=== PATIENT | male | born 1960 | race Hispanic/Latino ===

== ENCOUNTER 2017-01-28 09:11 | Outpatient (CLI) | payer BC ==
[2017-01-28 11:20] LABS: #Basophils 0.1 thou/uL (0.0-0.2); #Eosinphils 0.2 thou/uL (0.0-0.7); #Lymphocytes 2.8 thou/uL (1.20-3.40); #Monocytes 0.9 thou/uL (0.11-0.59); #Neutrophils 7.4 thou/uL (1.40-6.50); %Basophils 0.7 % (0.0-1.0); %Eosinophils 2.2 % (0.0-10.0); %Lymphocytes 24.7 % (21.0-51.0); %Monocytes 8.1 % (0.0-10.0); %Neutrophils 64.4 % (42.0-75.0); Hemoglobin 14.7 g/dL (14.0-18.0); Mean Corpuscular HGB CONC 34.6 g/dL (32.0-36.0); Mean Corpuscular Hemoglobin 32.1 pg (27.0-31.0); Mean Platelet Volume 5.9 fL (7.4-10.4); Platelet Count 429 thou/uL (130-400); Red Blood Cell (RBC) Count 4.57 mill/uL (4.70-6.10); White Blood Cell (WBC) Count 11.4 thou/uL (4.8-10.8)
[2017-01-28 11:28] LABS: ALT (SGPT) 15 U/L (8-55); AST (SGOT) 12 U/L (5-34); Albumin 4.3 g/dL (3.5-5.0); Alkaline Phosphatase 88 U/L (40-150); Anion Gap 14 mmol/L (10-20); BUN (Urea Nitrogen) 18 mg/dL (8.4-25.7); Bilirubin, Total 0.2 mg/dL (0.2-1.2); Calc. Creatinine Clearance 0 mL/min (70-130); Calcium 9.3 mg/dL (7.8-10.44); Carbon Dioxide 25 mmol/L (22-29); Cardiac Risk 6.1 (Less than 4.5); Chloride 108 mmol/L (98-107); Cholesterol 232 mg/dl (< 200 Desired); Estimated GFR-MDRD Greater than 90; Glucose 88 mg/dL (70-105); HDL Cholesterol 38 mg/dL (>60 Neg Risk); LDL Cholesterol, Calculated 159 mg/dL; Potassium 4.8 mmol/L (3.5-5.1); Protein, Total 7.3 g/dL (6.0-8.3); Sodium 142 mmol/L (136-145); Triglycerides 177 mg/dL (Less than 150)
[2017-01-28 11:47] LABS: Thyroid Stimulating Hormone 0.7847 uIU/mL (0.35-4.94)
== END 2017-01-28 09:12 | disposition home or self-care (01) ==
LOC: HPCALD 09:11
PROVIDERS: ATTEND Family Medicine
DX: Z12.5 Encounter for screening for malignant neoplasm of prostate (principal); Z13.6 Encounter for screening for cardiovascular disorders; I10 Essential (primary) hypertension
CPT/HCPCS: 36415; 80053; 80061; 84443; 85025; G0103

== ENCOUNTER 2017-01-29 10:34 | Outpatient (CLI) | payer BC ==
--- NOTE | 2017-01-29 21:22 | RAD ---
CHEST TWO VIEWS: 01/29/17 Comparison is made with the 09/11/10 study. The heart is normal in size and the lungs are clear. No i nfiltrate or effusion was seen. The right hilum is a little more prominent than the left but this is probably due to positioning of the patient. There is nothing on the left side that would explain sw elling. IMPRESSION: No acute thoracic finding. POS: HOME
== END 2017-01-29 10:35 | disposition home or self-care (01) ==
LOC: BURRAD 10:34
PROVIDERS: ATTEND Family Medicine
DX: M79.89 Other specified soft tissue disorders (principal)
CPT/HCPCS: 71020

== ENCOUNTER 2017-05-14 09:26 | Outpatient (CLI) | payer BC ==
--- NOTE | 2017-05-14 15:29 | ULT ---
LEFT AXILLA NONVASCULAR ULTRASOUND: 05/14/2017 HISTORY: Ultrasonography of the left axilla was performed for evaluation of a palpable mass. FINDINGS: There is a fairly well encapsulated, solid mass present that measures about 6.9 x 3.8 cm. It only h as a trace of blood flow within it. It is slightly hypoechoic. This could easily be a large lipoma ; however, I would need a CT to see the density numbers to be absolutely sure. There is no evidence of abscess, vascular anomaly, or other axillary findings of concern. IMPRESSION: Fairly well encapsulated solid mass with slight amounts of blood flow, more likely a lipoma than not ; however, this scan could not prove that. I feel a CT would be needed to be definitive. POS: [facility]
== END 2017-05-14 09:27 | disposition home or self-care (01) ==
LOC: BURULT 09:26
PROVIDERS: ATTEND Family Medicine
DX: M79.89 Other specified soft tissue disorders (principal)
CPT/HCPCS: 76882

== ENCOUNTER 2021-03-31 20:13 | Emergency (ER) | payer OTHER, BC ==
[2021-03-31] MEDS ORDERED: Bacitracin 1 PK ONE (20:36)
== END 2021-03-31 20:43 | disposition home or self-care (01) ==
LOC: BURERS 20:13
DX: S91.114A Laceration without foreign body of right lesser toe(s) without damage to nail, initial encounter (principal); I10 Essential (primary) hypertension; W26.0XXA Contact with knife, initial encounter
CPT/HCPCS: 99283

== ENCOUNTER 2022-11-26 16:25 | Emergency (ER) | payer BC, SELFPAY ==
[2022-11-26] MEDS ORDERED: HYDROcodone/Acetaminophen 10/325 mg Tablet ONE (16:50)
[2022-11-26] MEDS ORDERED: Bacitracin 1 PK ONE (16:51)
[2022-11-26] MEDS ORDERED: Cephalexin 250 MG CAP ONE (16:51)
== END 2022-11-26 17:19 | disposition home or self-care (01) ==
LOC: BURERS 16:25
DX: T24.112A Burn of first degree of left thigh, initial encounter (principal); I10 Essential (primary) hypertension; X08.8XXA Exposure to other specified smoke, fire and flames, initial encounter; Y36.2 War operations involving other explosions and fragments
CPT/HCPCS: 16000

== ENCOUNTER 2022-12-10 09:21 | Emergency (ER) | payer OTHER, SELFPAY ==
[2022-12-10] MEDS ORDERED: Bacitracin 1 PK ONE (09:41)
== END 2022-12-10 09:49 | disposition home or self-care (01) ==
LOC: BURERS 09:21
DX: S70.312A Abrasion, left thigh, initial encounter (principal); I10 Essential (primary) hypertension; W26.9XXA Contact with unspecified sharp object(s), initial encounter; Y99.0 Civilian activity done for income or pay
CPT/HCPCS: 99283